=== PATIENT | female | born 1950 | race Caucasian/White ===

== ENCOUNTER 2016-11-18 05:57 | Day surgery (SDC) | payer MEDICARE, BC ==
[~2016-11-18] VITALS: Ht 170.2 cm; Wt 78.5 kg
[~2016-11-18 05:57] MED LIST: ALEVE220 M2 PO; AMOXICILLIN500 MG PO; ASPIRIN81 MG PO; ATENOLOL25 MG PO; BENADRYL 25MG C25 MG PO; CALCIUM 1200 PO; CELEBREX100 M1 OR; CELEBREX200 MG; CELEBREX200 MG PO; CIPRO500 MG OR; CRESTOR5 MG PO; EFFEXOR XR75 MG; EFFEXOR75 MG OR; FISH OIL1000 MG PO; FLONASE NASAL50 MCG; IRON45 MG PO; MULTI VIT PO; NAPROSYN375 MG PO; PYRIDIUM200 MG OR; PYRIDIUM200 MG PO
[2016-11-18 08:23] VITALS: BP 109/55
== END 2016-11-18 08:27 | disposition home or self-care (01) ==
LOC: ENDO 05:57
PROVIDERS: ATTEND Surgery
PROC: 0DJD8ZZ Inspection of Lower Intestinal Tract, Via Natural or Artificial Opening Endoscopic (ICD-10-PCS; principal; 2016-11-18)
DX: Z12.11 Encounter for screening for malignant neoplasm of colon (principal); Z86.010 Personal history of colon polyps

== ENCOUNTER 2022-12-28 07:06 | Day surgery (SDC) | payer MEDICARE, BC ==
[~2022-12-28 07:06] MED LIST changes: +ATORVASTATIN CA10 MG PO; +D31000 UNIT PO; +NEXIUM20 M1 PO; +PRILOSEC OTC20 MG PO; +WEGOVY1 MG SC
[2022-12-28 08:55] VITALS: BP 119/75
== END 2022-12-28 09:02 | disposition home or self-care (01) ==
LOC: ENDO 07:06 → ORM 07:30 → ENDO 09:02
PROVIDERS: ATTEND Internal Medicine Gastroenterology
PROC: 0DBK8ZX Excision of Ascending Colon, Via Natural or Artificial Opening Endoscopic, Diagnostic (ICD-10-PCS; principal; 2022-12-28)
PROC: 0DB48ZX Excision of Esophagogastric Junction, Via Natural or Artificial Opening Endoscopic, Diagnostic (ICD-10-PCS; 2022-12-28)
PROC: 0DB78ZX Excision of Stomach, Pylorus, Via Natural or Artificial Opening Endoscopic, Diagnostic (ICD-10-PCS; 2022-12-28)
DX: Z12.11 Encounter for screening for malignant neoplasm of colon (principal); D12.2 Benign neoplasm of ascending colon; K64.8 Other hemorrhoids; K21.00 Gastro-esophageal reflux disease with esophagitis, without bleeding; K22.70 Barrett's esophagus without dysplasia; K44.9 Diaphragmatic hernia without obstruction or gangrene; K29.50 Unspecified chronic gastritis without bleeding; Z86.010 Personal history of colon polyps; Z85.3 Personal history of malignant neoplasm of breast